=== PATIENT | female | born 1960 | race American Indian/Alaskan Native ===

== ENCOUNTER 2016-10-18 17:58 | Emergency (ER) | payer SELFPAY ==
--- NOTE | 2016-10-18 21:26 | Emergency Department Report ---
ED Fall HPI - General Chief Complaint: Fall Stated Complaint: LBP/SPITTING UP BLOOD/RT ANKLE SPRAIN Time Seen by Provider: 10/18/16 21:11 Source: patient, family Mode of arrival: Ambulatory - History of Present Illness Initial Comments: Patient here reported that she slipped and fell 3-4 days ago and she twisted her right ankle and also fell on her buttocks and now she is having pain in her tailbone and her right ankle. She reports swelling to her right ankle which was worse than it's getting better. She said the pain to her tailbone is radiating tailbone to her left leg. She said she took ibuprofen with minimal relief. Denies any nausea vomiting. Denies any head injury or loss of consciousness. Her pain is 8 out of 10 and it is aching. Denies any numbness or tingling to extremities. Patient blood pressure is 156/104 with history of high blood pressure and not on any medication. She said Her blood pressure is usually elevated with pain. said that she has prescription for lisinopril but she did not get it filled . I instructed to her that lisinopril is fluent at [employer]. Complaint: fall Onset/Timin -: days(s) Fall From: standing When Fall Occurred: # days [employer] (4 days ago) Fall Witnessed: yes, by family Place Fall Occurred: home Loss of Consciousness: none Prolonged Down Time?: no Symptoms Prior to Fall: none Location: buttocks Location - Extremities: Right: Leg (radiating pain), Ankle (pain and swelling) Severity: severe Quality: aching Context: tripped/slipped Associated Symptoms: denies: headache, weakness, chest paint, shortness of breath, abdominal pain, hematuria, unable to walk, lightheaded, vertigo, confusion - Related Data Previous Rx's Medication Instructions Recorded Last Taken Type HYDROcodone/APAP 5-325 [[place] 1 each PO Q6HR PRN #16 tablet 10/18/16 Unknown Rx 5/325] Allergies Allergy/AdvReac Type Severity Reaction Status Date / Time Sulfa (Sulfonamide Allergy Hives Verified 10/18/16 18:58 Antibiotics) ED Review of Systems ROS: Stated complaint: LBP/SPITTING UP BLOOD/RT ANKLE SPRAIN Other details as noted in HPI Comment: All other systems reviewed and negative Constitutional: denies: chills, fever Respiratory: no symptoms reported Cardiovascular: denies: chest pain, palpitations, edema, syncope Gastrointestinal: denies: abdominal pain, nausea, vomiting, diarrhea, constipation Genitourinary: denies: urgency, dysuria, frequency, hematuria, discharge Musculoskeletal: back pain, joint swelling, arthralgia Skin: denies: rash Neurological: abnormal gait. denies: headache, weakness, numbness, paresthesias , confusion, vertigo ED Past Medical Hx - Past Medical History Previous Medical History?: Yes Hx Hypertension: Yes (NO MEDS) Hx Psychiatric Treatment: Yes (BIPOLAR) - Surgical History Past Surgical History?: Yes Additional Surgical History: PARTIAL HYSTERECTOMY. TONSILLECTOMY - Family History Family history: hypertension - Social History Smoking Status: Current Every Day Smoker Substance Use Type: Alcohol - Medications Home Medications: Home Medications Medication Instructions Recorded Confirmed Last Taken Type HYDROcodone/APAP 5-325 [[place] 1 each PO Q6HR PRN #16 tablet 10/18/16 Unknown Rx 5/325] ED Physical Exam - General Limitations: No Limitations General appearance: alert, in no apparent distress - Head Head exam: Present: atraumatic, normocephalic, normal inspection - Expanded Head Exam Expanded Head exam: Absent: laceration, abrasion, contusion, hematoma, racoon eyes, raines's sign, general tenderness, tenderness of temporal artery, CSF rhinorrhea , CSF otorrhea - Eye Eye exam: Present: normal appearance, PERRL, EOMI Pupils: Present: normal accommodation - Neck Neck exam: Present: normal inspection, full ROM. Absent: tenderness, meningismus, lymphadenopathy - Respiratory Respiratory exam: Present: normal lung sounds bilaterally. Absent: respiratory distress, chest wall tenderness - Cardiovascular Cardiovascular Exam: Present: regular rate, normal rhythm, normal heart sounds - GI/Abdominal GI/Abdominal exam: Present: soft, normal bowel sounds. Absent: distended, tenderness, guarding, rebound, rigid - Extremities Exam Extremities exam: Present: normal inspection, tenderness, normal capillary refill, joint swelling. Absent: full ROM, pedal edema, calf tenderness - Expanded Lower Extremity Exam Right Hip exam: Present: normal inspection, full ROM, pelvic stability. Absent: tenderness, swelling, abrasion, laceration, ecchymosis, deformity, crepidus, dislocation, erythema, external rotation, internal rotation, shortening Upper Leg exam: Present: normal inspection, full ROM. Absent: tenderness, swelling, abrasion, laceration, ecchymosis, deformity, crepidus, dislocation, erythema Knee exam: Present: normal inspection, full ROM, full knee extension. Absent: tenderness, swelling, abrasion, laceration, ecchymosis, deformity, crepidus, dislocation, erythema, effusion, pain w/ pronation/supination, posterior draw sign, pain/laxity with valgus, pain/laxity with varus Lower Leg exam: Present: normal inspection, full ROM. Absent: tenderness, swelling, abrasion, laceration, ecchymosis, deformity, crepidus, dislocation, erythema, palpable cord, Shikha's sign Ankle exam: Present: tenderness, swelling. Absent: full ROM (patient with limited range of motion to right ankle. Dorsiflexion and plantar flexion.), abrasion, laceration, ecchymosis, deformity, crepidus, dislocation, erythema Foot/Toe exam: Present: normal inspection, full ROM. Absent: tenderness, swelling, abrasion, laceration, ecchymosis, deformity, crepidus, dislocation, erythema, amputation, puncture wound, foreign body, calcaneal tenderness, tenderness at base of 5th metatarsal, nail avulsion, subungual hematoma Neuro vascular tendon exam: Present: no vascular compromise, significant pain with passive ROM of distal joint. Absent: pulse deficit, abnormal cap refill, motor deficit, sensory deficit, tendon deficit, extremity cold to touch, pallor , abnormal 2-point discrimination, decreased fine/light touch, foot drop, peroneal nerve deficit Gait: Positive: unable to bear weight (patient is able to partially weight-bear but it's very painful the patient) - Back Exam Back exam: Present: normal inspection, full ROM. Absent: tenderness, CVA tenderness (R), CVA tenderness (L), muscle spasm, paraspinal tenderness, vertebral tenderness, rash noted - Expanded Back Exam Expanded Back exam: Absent: saddle anesthesia Back exam: Negative Straight Leg Raising: Left, Right - Neurological Exam Neurological exam: Present: alert, oriented X3, abnormal gait (patient limping due to right ankle injury), reflexes normal - Expanded Neurological Exam Expanded Neurological exam: Absent: innattentive, memory loss-remote event, memory loss- recent event, ataxia, receptive aphasia, expressive aphasia, total aphasia, tremor, protecting the airway Patient oriented to: Present: person, place, time Speech: Present: fluid speech Cranial nerves: EOM's Intact: Normal, Gag Reflex: Normal, Nystagmus: Normal, Facial Sensation: Normal Upper motor neuron: Pronator Drift: Normal, Sensory Extinction: Normal Sensory exam: Upper Extremity Light Touch: Normal, Upper Extremity Temperature: Normal, UE 2 Point Discrimination: Normal, Lower Extremity Light Touch: Normal, Lower Extremity Temperature: Normal, LE 2 Point Discrimination: Normal Motor strength exam: RUE: 5, LUE: 5, RLE: 5, LLE: 5 DTR: bicep (R): 2+, bicep (L): 2+, tricep (R): 2+, tricep (L): 2+, knee (R): 2+ , knee (L): 2+, ankle (R): 2+, ankle (L): 2+ Best Eye Response ([place]): (4) open spontaneously Best Motor Response (Asya): (6) obeys commands Best Verbal Response ([place]): (5) oriented Asya Total: 15 - Psychiatric Psychiatric exam: Present: normal affect, normal mood - Skin Skin exam: Present: warm, dry, intact, normal color. Absent: rash ED Course Vital Signs 10/18/16 10/18/16 10/18/16 19:00 21:50 22:47 Temperature 97.4 F L Pulse Rate 84 Respiratory 16 18 18 Rate Blood Pressure 156/104 O2 Sat by Pulse 100 Oximetry Vital Signs 10/18/16 10/18/16 10/18/16 19:00 21:50 22:47 Temperature 97.4 F L Pulse Rate 84 Respiratory 16 18 18 Rate Blood Pressure 156/104 Blood Pressure [Left] O2 Sat by Pulse 100 Oximetry 10/18/16 23:22 Temperature Pulse Rate 84 Respiratory 18 Rate Blood Pressure Blood Pressure 145/95 [Left] O2 Sat by Pulse 97 Oximetry - Reevaluation(s) Reevaluation #1: 10/18/16 23:11 Condition given [place] 5/325 mg 2 tablets in emergency room for pain. She said her pain has now down to 2 out of 10. Reevaluation #2: 10/18/16 23:35 Upon reevaluation after splint placement, PT with good color, sensation, movement in temperature to toes. - Orthopedic Splinting/Casting Injury #1 Side: right Lower Extremity Injury Location: ankle Lower Extremity Immobilizer: posterior splint Other Orthopedic Equipment: crutches ED Medical Decision Making - Radiology Data Radiology results: report reviewed X-ray of sacrum and coccyx revealed no evidence of fracture. Grade 2 spondylolisthesis at L5-S1. X-ray of right ankle revealed acute fracture of the lateral malleolus .ankle mortise appears normal. Positive soft tissue swelling overlying the lateral malleolus. No significant displacement or angulation. - Medical Decision Making ED course: See procedure note for details and splinting. Patient received [place] 5/325 2 tablets in emergency room for right ankle pain and pain to buttocks. She reports relief of her pain. Discussed with patient that she has a fracture of her right ankle and will need to follow-up with orthopedic doctor. I discussed with her that she needs to keep the splint on until seen by orthopedic doctor. I discussed with her that she does not need to do any weightbearing on her right foot. Injury happened 3-4 days ago per patient. I discussed her x-ray of the sacrum and coccyx later note that she does not have any acute fracture but she does have spondylolisthesis and I described to her that is. I told her she will also need to follow-up with orthopedic. Patient discharged home with prescription for [place]. Critical care attestation.: If time is entered above; I have spent that time in minutes in the direct care of this critically ill patient, excluding procedure time. ED Disposition Clinical Impression: Coccygeal pain, acute, Arthralgia of multiple sites, Encounter for smoking cessation counseling Spondylisthesis Qualifiers: Spinal region: lumbosacral Qualified Code(s): M43.17 - Spondylolisthesis, lumbosacral region Ankle fracture, right Qualifiers: Encounter type: initial encounter Fracture type: closed Qualified Code(s): S82.891A - Other fracture of right lower leg, initial encounter for closed fracture Fall from standing Qualifiers: Encounter type: initial encounter Qualified Code(s): W19.XXXA - Unspecified fall, initial encounter Hypertension Qualifiers: Hypertension type: essential hypertension Qualified Code(s): I10 - Essential ( primary) hypertension Disposition: DISCHARGED TO HOME OR SELFCARE Is pt being admited?: No Does the pt Need Aspirin: No Condition: Stable Instructions: Arthralgia (ED), Ankle Fracture (ED), Splint Care (ED), Coccyx Injury (ED), Lumbar Radiculopathy (ED), Hypertension (ED), How to Stop Smoking ( ED) Additional Instructions: Stop smoking Please follow up with orthopedic doctor as instructed Avoid getting splint wet. No weightbearing to RT lower extremity You have a fractured ankle and will need to follow-up with orthopedic doctor as instructed. Lisinopril. Palpate so using a prescription that was given to him by the provider to keep blood pressure normal. If he did not have a primary care doctor, please follow up at [facility] for management and care of chronic disease. He stayed medication as prescribed and please do not operate heavy machinery or drive when taking medication as this will cause drowsiness Prescriptions: HYDROcodone/APAP 5-325 [[place] 5/325] 1 each PO Q6HR PRN #16 tablet PRN Reason: Pain Referrals: SOLOMON CORNEJO MD [Staff Physician] - 2-3 Days [facility] [Outside] - 3-5 Days Forms: Accompanied Note, Work/School Release Form(ED)
[2016-10-18] MEDS ORDERED: NORCO 5/325 PO ONE (21:27)
--- NOTE | 2016-10-18 22:30 | XRay Report ---
FINAL REPORT PROCEDURE: Sacrum and coccyx. TECHNIQUE: Three views. HISTORY: Fall with pain in tailbone. COMPARISON: No prior studies are available for comparison. FINDINGS: There is a large amount of rectal fecal material which degrades image quality on the frontal projection. The sacrum and coccyx appear intact. There are no fractures identified. There is a grade 2 spondylolisthesis at L5-S1. IMPRESSION: No evidence of fracture. Grade 2 spondylolisthesis at L5-S1.
--- NOTE | 2016-10-18 23:04 | XRay Report ---
FINAL REPORT PROCEDURE: Right ankle. TECHNIQUE: Three views. HISTORY: Patient fell and twisted ankle. COMPARISON: No prior studies are available for comparison. FINDINGS: There is an oblique fracture through the lateral malleolus. There is no significant displacement or angulation. The distal tibia appears intact. The ankle mortise appears normal. There is soft tissue swelling overlying the lateral malleolus. IMPRESSION: Acute fracture of the lateral malleolus.
[2016-10-18 23:22] VITALS: BP 145/95
== END 2016-10-19 | disposition home or self-care (01) ==
LOC: ED 17:58
DX: S82.891A Other fracture of right lower leg, initial encounter for closed fracture (principal); M43.17 Spondylolisthesis, lumbosacral region; I10 Essential (primary) hypertension; M25.50 Pain in unspecified joint; M53.3 Sacrococcygeal disorders, not elsewhere classified; Z71.6 Tobacco abuse counseling; F31.9 Bipolar disorder, unspecified; F17.200 Nicotine dependence, unspecified, uncomplicated; Z90.711 Acquired absence of uterus with remaining cervical stump; Z90.89 Acquired absence of other organs; Z88.2 Allergy status to sulfonamides
CPT/HCPCS: 72220